=== PATIENT | female | born 1995 | race Caucasian/White ===

== ENCOUNTER 2018-09-02 13:26 | Inpatient (IN) ==
[2018-09-02] MEDS ORDERED: SODIUM CHLORIDE 0.9% 1000ML 2,000 ML IV ONE (13:57)
[2018-09-02] MEDS ORDERED: ONDANSETRON INJ 2 MG/ML 2 ML VIAL IV STA (14:15)
[2018-09-02] MEDS ORDERED: KETOROLAC TROMETHAMINE 15 MG/ML VIAL IV STA (14:15)
[2018-09-02] MEDS ORDERED: DEXAMETHASONE **PF** INJ 10 MG/ML VIAL IV ONE (14:15)
[2018-09-02] MEDS ORDERED: HYDROmorphone INJ 1 MG/ML SYRINGE IV STA ×2 (14:15→16:51)
[2018-09-02 14:21] LABS: Basophils # (auto) 0.02 K/uL (0-0.2); Basophils % (auto) 0.4 %; Hematocrit (blood only) 36.7 % (37-47); Hemoglobin 11.9 g/dL (12.0-16.0); Immature Granulocytes # (auto) 0.01 K/uL (0.00-0.02); Immature Granulocytes % (auto) 0.2 %; Lymphocytes # (auto) 1.45 K/uL (1.2-3.4); Lymphocytes % (auto) 25.4 %; Mean Corpuscular Hgb Conc 32.4 g/dL (32-36); Mean Corpuscular Volume 87.8 fL (80-100); Mean Platelet Volume 10.1 fL (7.4-10.4); Monocytes # (auto) 0.58 K/uL (0.11-0.59); Monocytes % (auto) 10.2 %; Neutrophils # (auto) 3.64 K/uL (1.4-6.5); Neutrophils % (auto) 63.8 %; Platelet Count 143 K/uL (130-400); RDW Coefficient of Variation 12.2 % (11.5-14.5); RDW Standard Deviation 39.2 fL (36.4-46.3); Red Blood Count 4.18 M/uL (4.2-5.4)
[2018-09-02 14:40] LABS: Albumin Level 3.6 gm/dl (3.4-5.0); BUN Creatinine Ratio 13.5 (10-20); Calcium 9.1 mg/dl (8.5-10.1); Creatinine Clr Calc Pharmacy 108.2 ml/min; Est GFR (African American) 116.8; Est GFR (Non-African American) 100.8
[2018-09-02 14:43] LABS: Albumin Globulin Ratio 0.9 (0.9-2); Bilirubin,Total 0.4 mg/dl (0.2-1); Globulin 3.9 gm/dl (2.5-4.0); Total Protein 7.5 gm/dl (6.4-8.2)
[2018-09-02] MEDS ORDERED: POTASSIUM CHLORIDE 20 MEQ/15 ML UDC PO STA (15:17)
[2018-09-02] MEDS ORDERED: POTASSIUM CHLORIDE / WTR 10 MEQ/100 ML PLCT IV ONE (15:17)
--- NOTE | 2018-09-02 15:17 | Emergency Department Note ---
Entered by Bebe Baltazar acting as a scribe for ED Provider Note CHIEF COMPLAINT: Sore throat and weakness HISTORY OF PRESENT ILLNESS: The patient is a 22 year old female who presents to the Emergency Room with complaints of worsening sore throat and weakness that started last night. The patient was seen in the ER yesterday for sore throat secondary to suppurative tonsillitis from mononucleosis. The patient�s friend notes the patient is unable to speak. The patient reports she took OxyIR at 1 but did not help. She reports she was hot and shaky all night and could not sleep. The patient notes she woke up this morning and it was difficult to breath. She states she has intermittent nausea and feels dizzy. The patient states her body is achy all over. Pt denies LOC, headache, fevers, chills, diaphoresis, visual changes, neck pain , chest pain, vomiting, abdominal pain, back pain, melena, hematochezia, urinary symptoms, numbness, lymphadenopathy, rash, or other complaints. REVIEW OF SYSTEMS: See HPI for pertinent positives and negatives. A total of ten systems were reviewed and were otherwise negative. PMHx/PSHx: Acute suppurative tonsillitis Mononucleosis Elevated LFTs SOCIAL HISTORY: Patient lives at home. PHYSICAL EXAM: GENERAL: Awake, alert, uncomfortable-appearing, in no distress HENT: Normocephalic, atraumatic. Moderate anterior adenopathy. Throat exam showed bilateral tonsillar hypertrophy and exudate. Slightly worse on the right side. There is posterior edema. EYES: Normal conjunctiva. Sclera non-icteric. NECK: Inspection normal. Tender on the left side. Supple. No nuchal rigidity. FROM. No masses. RESPIRATORY: Clear to auscultation. No wheezes. No rales. Normal respiratory effort. CARDIAC: Tachycardic rate. Normal rhythm. No murmurs. No rubs. Extremities warm and well perfused. Pulses equal. No JVD. GI: Soft, non-distended. No tenderness to palpation. No rebound or guarding. No masses. RECTAL: Deferred. MUSCULOSKELETAL: Atraumatic. Chest examination reveals no tenderness. The back is symmetrical on inspection without obvious abnormality. There is no CVA tenderness to palpation. No joint edema. LOWER EXTREMITIES: Calves are equal size bilaterally and non-tender. No edema. No discoloration. NEURO: Normal sensorium. No sensory or motor deficits noted. SKIN: No rash or jaundice noted. EMERGENCY DEPARTMENT COURSE: 1413: Past medical records reviewed. The patient was evaluated in room B7, and a complete history and physical examination were performed. 1648: I checked on the patient. The patient is still having pain. 1834: I put out a call for ENT. 1840: I reviewed the patient's case with Dr. Castañeda ENT. He recommended IV antibiotics. He prefers not to intervene on that. 1848: I reevaluated the patient and updated her on test results. I discussed the treatment plan with her and her family. The patient verbally agreed and understood. 1858: I reviewed the patient's case with Dr. Bateman, [facility] Hospitalist. He will evaluate the patient for further management. MEDICAL DECISION MAKING: Prior records/ancillary studies reviewed. Triage Nursing notes reviewed and agree them. The patient's history was concerning for continued fever, chills and sore throat. Differential diagnosis: Etiologies such as dehydration, mononucleosis, streptococcal pharyngitis, peritonsillar abscess, viral syndrome, retropharyngeal abscess, tonsillitis, otitis, pneumonia, influenza, as well as others were entertained. ER treatment provided: IV lock Cardiac monitoring IV normal saline 2 L bolus IV Toradol IV Decadron IV Dilaudid IV Zofran On reassessment the patient felt better. IV potassium 10 mEq Oral potassium 20 mEq On reassessment patient is doing somewhat better. IV clindamycin 900 mg Diagnostics interpreted by me: The labs revealed a mild anemia on CBC. Chemistry panel revealed hypokalemia with a potassium of 3.0. Her LFTs were elevated but improved. Imaging studies: CT scan of the neck soft tissues with IV contrast was performed. The patient has significant inflammatory change to both tonsils. There is a peritonsillar abscess measuring 1.7 cm. Epiglottis normal. I discussed further management in the hospital. Patient is in agreement. Family updated as well as they were at the bedside. Consultation: A consultation was placed with ENT and the case was discussed. IV antibiotics recommended. Surgical intervention was deferred at this time. Consultation was made with the [facility]ist service. The patient was evaluated in the ER and admitted for further treatment. IMPRESSION: Acute suppurative tonsillitis Peritonsillar abscess Hypokalemia Fever PLAN: Admit The scribe's documentation has been prepared under my direction and personally reviewed by me in its entirety. I confirm that the note above accurately reflects all work, treatment, procedures, and medical decision making performed by me. Impression & Plan Acute suppurative tonsillitis, Peritonsillar abscess, Hypokalemia, Fever Past Med/Surg History Medical History Acute suppurative tonsillitis (Acute) Mononucleosis (Acute) Elevated LFTs (Acute) Family History Other No known problems Social History Feels Safe at Home: Yes Smoking Status: Never smoker Results & Data Vital Signs Vital Signs - 24 hr 09/02/18 13:32 09/02/18 14:30 09/02/18 15:00 Temperature 38.3 C H Temperature Source Oral Sepsis Recent Fever Within 48 Hours No Sepsis New/Unexplained Change in Mental Status No Sepsis Action Taken by Nursing No Action Required Pulse Rate 90 97 H 103 H Pulse Rate from SpO2 Sensor 98 H 104 H Pulse Rhythm Regular Respiratory Rate 18 18 21 Respiratory Depth Normal Blood Pressure 135/84 124/82 129/86 Blood Pressure Mean 101 96 100 Pulse Oximetry 98 99 98 Oxygen Delivery Method Room Air Room Air Room Air 09/02/18 16:00 09/02/18 16:30 09/02/18 17:00 Temperature Temperature Source Sepsis Recent Fever Within 48 Hours Sepsis New/Unexplained Change in Mental Status Sepsis Action Taken by Nursing Pulse Rate 115 H 108 H 103 H Pulse Rate from SpO2 Sensor 114 H 108 H 103 H Pulse Rhythm Respiratory Rate 16 17 17 Respiratory Depth Blood Pressure 135/83 118/77 121/77 Blood Pressure Mean 100 90 91 Pulse Oximetry 97 95 96 Oxygen Delivery Method Room Air 09/02/18 17:26 09/02/18 18:01 09/02/18 18:30 Temperature 37.7 C H Temperature Source Oral Sepsis Recent Fever Within 48 Hours Sepsis New/Unexplained Change in Mental Status Sepsis Action Taken by Nursing Pulse Rate 92 H 89 Pulse Rate from SpO2 Sensor 95 H 89 Pulse Rhythm Respiratory Rate 15 18 Respiratory Depth Blood Pressure 119/78 111/79 Blood Pressure Mean 91 89 Pulse Oximetry 97 95 Oxygen Delivery Method 09/02/18 19:00 09/02/18 19:30 09/02/18 19:36 Temperature Temperature Source Sepsis Recent Fever Within 48 Hours Sepsis New/Unexplained Change in Mental Status Sepsis Action Taken by Nursing Pulse Rate 90 90 90 Pulse Rate from SpO2 Sensor 90 90 Pulse Rhythm Respiratory Rate 18 14 14 Respiratory Depth Blood Pressure 122/85 123/90 123/90 Blood Pressure Mean 97 101 Pulse Oximetry 97 98 98 Oxygen Delivery Method Room Air Room Air Home Medications Current Medication List: was personally reviewed by me Laboratory Data Attestation: I reviewed the patient's lab results. Result diagrams: 09/02/18 14:10 09/02/18 14:10 Lab Results 09/02/18 09/02/18 Range/Units 14:10 14:10 WBC 5.70 (4.8-10.8) K/uL RBC 4.18 L (4.2-5.4) M/uL Hgb 11.9 L (12.0-16.0) g/dL Hct 36.7 L (37-47) % MCV 87.8 (80-100) fL MCH 28.5 (25-34) pg MCHC 32.4 (32-36) g/dL RDW Std Deviation 39.2 (36.4-46.3) fL RDW Coeff of Tasha 12.2 (11.5-14.5) % Plt Count 143 (130-400) K/uL MPV 10.1 (7.4-10.4) fL Immature Gran % (Auto) 0.2 % Neut % (Auto) 63.8 % Lymph % (Auto) 25.4 % [place] % (Auto) 10.2 % Eos % (Auto) 0.0 % Baso % (Auto) 0.4 % Immature Gran # (Auto) 0.01 (0.00-0.02) K/uL Neut # (Auto) 3.64 (1.4-6.5) K/uL Lymph # (Auto) 1.45 (1.2-3.4) K/uL [place] # (Auto) 0.58 (0.11-0.59) K/uL Eos # (Auto) 0.00 (0-0.5) K/uL Baso # (Auto) 0.02 (0-0.2) K/uL Sodium 138 (136-145) mmol/L Potassium 3.0 L (3.5-5.1) mmol/L Chloride 100 (98-107) mmol/L Carbon Dioxide 29 (21-32) mmol/L Anion Gap 8.0 (3-11) BUN 11 (7-18) mg/dl Creatinine 0.83 (0.6-1.2) mg/dl Est Cr Clr Drug Dosing 108.2 ml/min Est GFR ( Amer) 116.8 Est GFR (Non-Af Amer) 100.8 BUN/Creatinine Ratio 13.5 (10-20) Glucose 99 (70-99) mg/dl Calcium 9.1 (8.5-10.1) mg/dl Total Bilirubin 0.4 (0.2-1) mg/dl AST 129 H (15-37) U/L ALT 277 H (12-78) U/L Alkaline Phosphatase 111 (45-117) U/L Total Protein 7.5 (6.4-8.2) gm/dl Albumin 3.6 (3.4-5.0) gm/dl Globulin 3.9 (2.5-4.0) gm/dl Albumin/Globulin Ratio 0.9 (0.9-2) Administered Medications Discontinued Medications Acetaminophen (Children's Acetaminophen) 960 mg PO NOW STA Stop: 09/02/18 16:43 Last Admin: 09/02/18 17:19 Dose: 960 mg Dexamethasone Sodium Phosphate (Decadron Pf) 10 mg IV NOW ONE Stop: 09/02/18 14:16 Last Admin: 09/02/18 14:26 Dose: 10 mg Hydromorphone HCl (Dilaudid) 1 mg IV NOW STA Stop: 09/02/18 14:16 Last Admin: 09/02/18 14:27 Dose: 1 mg Hydromorphone HCl (Dilaudid) 1 mg IV NOW STA Stop: 09/02/18 16:52 Last Admin: 09/02/18 17:19 Dose: 1 mg Sodium Chloride (Nss 1000ml) 2,000 mls @ 999 mls/hr IV .Q2H1M ONE Stop: 09/02/18 15:57 Last Infusion: 09/02/18 15:49 Dose: 0 mls/hr Admin: 09/02/18 14:17 Dose: 999 mls/hr Potassium Chloride (K Bowen / Wtr) 10 meq in 100 mls @ 100 mls/hr IV ONE ONE Stop: 09/02/18 16:16 Last Infusion: 09/02/18 17:18 Dose: 0 mls/hr Admin: 09/02/18 15:48 Dose: 100 mls/hr Clindamycin Phosphate 900 mg/ (Dextrose) 106 mls @ 100 mls/hr IV ONE ONE Stop: 09/02/18 19:38 Last Admin: 09/02/18 19:05 Dose: 100 mls/hr Ioversol (Optiray 320 100ml) 95 ml IV ONCE PRN PRN Reason: Interaction Checking Stop: 09/06/18 17:54 Last Admin: 09/02/18 17:55 Dose: 95 ml Ketorolac Tromethamine (Toradol) 15 mg IV NOW STA Stop: 09/02/18 14:16 Last Admin: 09/02/18 14:26 Dose: 15 mg Ondansetron HCl (Zofran) 4 mg IV NOW STA Stop: 09/02/18 14:16 Last Admin: 09/02/18 14:26 Dose: 4 mg Potassium Chloride (Tessy Ciel Elix) 20 meq PO NOW STA Stop: 09/02/18 15:18 Last Admin: 09/02/18 15:48 Dose: 20 meq Blood Pressure Blood Pressure Findings: Normal blood pressure Blood Pressure Disposition: did not require urgent referral Discharge Plan Visit Data Chief Complaint: Weakness Stated Complaint: MONO SWOLLEN TONSILS SOB WEAK ED Provider: Lucio Sanchez Discharge Problem: Acute suppurative tonsillitis, Peritonsillar abscess, Hypokalemia, Fever Patient Disposition: Being Evaluated by Hospitalist Discharge Instructions Interventions: ED Discharge Assessment Last Done: 09/02/18 19:36 The scribe's documentation has been prepared under my direction and personally reviewed by me in its entirety. I confirm that the note above accurately reflects all work, treatment, procedures, and medical decision making performed by me.
[2018-09-02] MEDS ORDERED: ACETAMINOPHEN SUSP 160 MG/5 ML UDC PO STA (16:42)
[2018-09-02] MEDS ORDERED: IOVERSOL 100ml IV PRN (17:55)
--- NOTE | 2018-09-02 18:07 | CT Scan Report ---
CT soft tissue neck w con CLINICAL HISTORY: 22 years-old Female presenting with severe sore throat, inability to swallow. TECHNIQUE: Multidetector CT of the neck was performed after the administration of intravenous contras t. IV contrast: 95 mL of Optiray 320. One or more dose lowering techniques were used consistent with the principles of ALARA (as low as reasonably achievable), including automatic exposure control, mA o r kV adjustment to individual patient size, and/or use of iterative reconstruction. COMPARISON: None. CT DOSE (mGy.cm): The estimated cumulative dose is 471.37 mGy.cm. FINDINGS: Material Control Analyst topogram: Unremarkable. Polypoid mucosal thickening in the left maxillary sinus. Significant hyperemia and swelling of the bi lateral palatine tonsils. A focal round 1.6 cm collection is noted in the left tonsil consistent with abscess. Effacement of the oropharynx. Swelling of the uvula. No effacement of the valleculae or pir iform sinuses. Severe effacement of the nasopharynx with mucosal hyperemia (series 3 image 1:15). Sig nificant thickening of nasopharyngeal mucosa. No retropharyngeal fluid or inflammatory change is appa rent. Numerous small bilateral cervical lymph nodes, likely reactive. Patent vasculature. Parotid, lino bmandibular, and thyroid glands normal. Orbits normal. Limited intracranial evaluation within normal limits. 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 IMPRESSION: Severe tonsillitis with a 1.6 cm left peritonsillar abscess. Significant narrowing of the oropharynx and effacement of the nasopharynx due to exuberant mucosal thickening and inflammatory change. No ret ropharyngeal abscess or retropharyngeal inflammatory change. Electronically signed by: Cam Jennings M.D. 09/02/2018 6:06 PM
[2018-09-02] MEDS ORDERED: CLINDAMYCIN 900 MG in DEXTROSE 5% 100 ML IV ONE (18:35)
[2018-09-02] MEDS ORDERED: OXYCODONE HCL IR 5 MG TAB (IMMEDIATE RELEASE) PO PRN (19:42)
[2018-09-02] MEDS ORDERED: ONDANSETRON INJ 2 MG/ML 2 ML VIAL IV PRN (19:42)
--- NOTE | 2018-09-02 22:32 | History & Physical Report ---
Date of Service September 02, 2018 Assessment & Plan (1) Peritonsillar abscess: will treat with Clindamycin 900mg IV q8 no role for drainage per ENT due to high risk of bleeding take control with Oxycodone can use Toradol IV PRN or Morphine for breakthrough consult Dr. Castañeda to see here in hospital, would be helpful for her to have follow up with him in office (2) Hypokalemia: replace with 20mEq of K in maintenance fluids repeat tomorrow (3) Mononucleosis: supportive care with fluids, pain control patient with fatigue, mildly elevated LFT, mild splenomegaly discussed no contact sports for 3-6 months (4) Elevated LFTs: due to [place] repeat tomorrow (5) Splenomegaly: due to mono see above (6) Dehydration: NSS + 20mEq of K at 100cc/hr History of Present Illness Chief Complaint: My throat hurts really bad Primary Care Provider: [facility], [place] 22 yo female with week long history of severe sore throat. She was diagnosed with infectious mononucleosis earlier in the week. She has been experiencing profound fatigue and the worst sore throat she has ever experienced. It is difficult to swallow. She can drink fluids but she is having a difficult time eating foods. No difficulty breathing. She was seen two days ago for these symptoms in the ED, her potassium was low and she was given aggressive hydration and potassium supplementation and sent home with Oxycodone to take for pain. She returns today because her sore throat is worse and she still is having a difficult time swallowing, eating and drinking. Her potassium was low at 3.0. CT neck shows a peritonsillar abscess. ED discussed with Dr. Castañeda, he said that peritonsillar abscess is difficult to drain with concurrent mono because they tend to bleed a lot. He recommended IV antibiotics. The patient has no medical history. 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 In addition to the fatigue and sore throat she admits to some vague but constant abdominal pain, most pronounced in LUQ consistent with a swollen spleen. No smoking, no daily drinking. She does not have any significant family history in this situation. Allergies Allergy/AdvReac Type Severity Reaction Status Date / Time No Known Allergies Allergy Unverified 09/02/18 13:49 Home Medications Home Medications Medication Instructions Recorded Confirmed Type oxycodone 5 mg PO DAILY PRN 09/02/18 09/02/18 History Past Med/Surg History Medical History Acute suppurative tonsillitis (Acute) Mononucleosis (Acute) Elevated LFTs (Acute) Family History Other HTN (hypertension) No known problems Social History Current Living Situation: Family Current Living Situation Comment: PATIENT IS A [employer] STUDENT Feels Safe at Home: Yes Safety Concerns: Feels Safe At This Time Smoking Status: Never smoker Hx Alcohol Use: Yes Alcohol type: beer, wine and hard liquor Alcohol Intake Frequency: holidays/special occasions only Hx Substance Use: No Beliefs That Will Affect Care: None Preferred Language: Syriac Communication Ability: Effective Mortgage Loan Processor Required: No Review of Systems All systems reviewed & are unremarkable except as noted in HPI & below Physical Exam 2 Vital Signs (Past 24 Hours): Last Vital Signs Temp 37.7 C H 09/02/18 17:26 Pulse 90 09/02/18 19:00 Resp 18 09/02/18 19:00 BP 122/85 09/02/18 19:00 Pulse Ox 97 09/02/18 19:00 Constitutional: WD/WN, vitals as above + ill appearing; + not appropriately hydrated (appears dry) Eyes: PERRL, conjunctivae normal, anicteric sclerae ENMT: Nose: no nasal discharge and no sinus tenderness Mouth: + muffled voice; no lip abnormality Throat: uvula midline and + tonsil abnormality ( swollen bilaterally, nearly touching in the midline, purulent drainage) Neck: trachea midline, no thyromegaly Respiratory: normal respiratory effort, lungs clear to auscultation Cardiovascular: RRR, no murmur, no edema Gastrointestinal (Abdomen): Inspection/Auscultation: abdomen normal to inspection and normal bowel sounds Percussion/Palpation: + abdomen tender ( LUQ), abdomen soft and + splenomegaly (spleen can be palpated, two finger widths below costal margin, tender); no guarding, no hepatomegaly and no abdominal mass Musculoskeletal: no cyanosis or clubbing, extremities motor strength 5/5 Skin: no rashes, warm and dry Neurologic: patellar DTR's 2+ bilat, sensation intact and PERRL, EOMI, accommodation nl, no face palsy, no dysarthria Psychiatric: A+Ox3, euthymic affect Lymphatic: no cervical or axillary lymphadenopathy Results & Data Laboratory Results Laboratory Results - last 24 hr 09/02/18 09/02/18 14:10 14:10 WBC 5.70 RBC 4.18 L Hgb 11.9 L Hct 36.7 L MCV 87.8 MCH 28.5 MCHC 32.4 RDW Std Deviation 39.2 RDW Coeff of Tasha 12.2 Plt Count 143 MPV 10.1 Immature Gran % (Auto) 0.2 Neut % (Auto) 63.8 Lymph % (Auto) 25.4 [place] % (Auto) 10.2 Eos % (Auto) 0.0 Baso % (Auto) 0.4 Immature Gran # (Auto) 0.01 Neut # (Auto) 3.64 Lymph # (Auto) 1.45 [place] # (Auto) 0.58 Eos # (Auto) 0.00 Baso # (Auto) 0.02 Sodium 138 Potassium 3.0 L Chloride 100 Carbon Dioxide 29 Anion Gap 8.0 BUN 11 Creatinine 0.83 Est Cr Clr Drug Dosing 108.2 Est GFR ( Amer) 116.8 Est GFR (Non-Af Amer) 100.8 BUN/Creatinine Ratio 13.5 Glucose 99 Calcium 9.1 Total Bilirubin 0.4 AST 129 H ALT 277 H Alkaline Phosphatase 111 Total Protein 7.5 Albumin 3.6 Globulin 3.9 Albumin/Globulin Ratio 0.[address] NECK AND SOFT TISSUES IMPRESSION: Severe tonsillitis with a 1.6 cm left peritonsillar abscess. Significant narrowing of the oropharynx and effacement of the nasopharynx due to exuberant mucosal thickening and inflammatory change. No retropharyngeal abscess or retropharyngeal inflammatory change. Code Status & VTE Plan Code Status full code VTE Prophylaxis Plan VTE Prophylaxis will be ordered: No _ (1) Mononucleosis Infectious mononucleosis complication: Infectious mononucleosis etiology:
[2018-09-02] MEDS: ACETAMINOPHEN 325 MG TAB PO PRN (23:36)
[2018-09-03] MEDS: CLINDAMYCIN 900 MG in DEXTROSE 5% 100 ML IV SCH ×2 (03:20→10:26)
[2018-09-03] MEDS: OXYCODONE HCL IR 5 MG TAB (IMMEDIATE RELEASE) PO PRN ×2 (03:27→13:48)
[2018-09-03 06:49] LABS: Basophils # (auto) 0.02 K/uL (0-0.2); Basophils % (auto) 0.3 %; Hematocrit (blood only) 34.8 % (37-47); Hemoglobin 11.2 g/dL (12.0-16.0); Immature Granulocytes # (auto) 0.02 K/uL (0.00-0.02); Immature Granulocytes % (auto) 0.3 %; Lymphocytes # (auto) 1.63 K/uL (1.2-3.4); Lymphocytes % (auto) 24.8 %; Mean Corpuscular Hgb Conc 32.2 g/dL (32-36); Mean Corpuscular Volume 88.3 fL (80-100); Mean Platelet Volume 9.7 fL (7.4-10.4); Monocytes # (auto) 0.99 K/uL (0.11-0.59); Monocytes % (auto) 15.1 %; Neutrophils # (auto) 3.91 K/uL (1.4-6.5); Neutrophils % (auto) 59.5 %; Platelet Count 171 K/uL (130-400); RDW Coefficient of Variation 12.2 % (11.5-14.5); RDW Standard Deviation 39.4 fL (36.4-46.3); Red Blood Count 3.94 M/uL (4.2-5.4); White Blood Count 6.57 K/uL (4.8-10.8)
[2018-09-03 07:29] LABS: Albumin Level 3.2 gm/dl (3.4-5.0); BUN Creatinine Ratio 14.3 (10-20); Bilirubin Direct 0.1 mg/dl (0-0.2); Calcium 8.3 mg/dl (8.5-10.1); Creatinine Clr Calc Pharmacy 126.4 ml/min; Est GFR (African American) 141.1; Est GFR (Non-African American) 121.8; Potassium 4.1 mmol/L (3.5-5.1)
[2018-09-03] MEDS: ACETAMINOPHEN 325 MG TAB PO PRN (07:30)
[2018-09-03 07:36] LABS: Bilirubin,Total 0.5 mg/dl (0.2-1); Total Protein 7.1 gm/dl (6.4-8.2)
--- NOTE | 2018-09-03 07:39 | Surgery Consultation ---
Date of Consultation September 03, 2018 Assessment & Plan (1) Mononucleosis: may have small abcess, better this AM after Iv clinda., please call me if she gets worse for possible I and D, thanks (2) Peritonsillar abscess: History of Present Illness Reason for Consultation: sore throat Attending Physician: Willi Bateman DO History of Present Illness 22 yo with inf. mono., splenomegaly, CT showed left peritonsillar abcess but she has no trismus or dysphagia Allergies Allergy/AdvReac Type Severity Reaction Status Date / Time No Known Allergies Allergy Unverified 09/02/18 13:49 Home Medications Home Medications Medication Instructions Recorded Confirmed Type oxycodone 5 mg PO DAILY PRN 09/02/18 09/02/18 History Patient History Medical History Acute suppurative tonsillitis (Acute) Mononucleosis (Acute) Elevated LFTs (Acute) Family History Other HTN (hypertension) No known problems Social History Current Living Situation: Family Current Living Situation Comment: PATIENT IS A [employer] STUDENT Feels Safe at Home: Yes Safety Concerns: Feels Safe At This Time Smoking Status: Never smoker Hx Alcohol Use: Yes Alcohol type: beer, wine and hard liquor Alcohol Intake Frequency: holidays/special occasions only Hx Substance Use: No Beliefs That Will Affect Care: None Preferred Language: Kiswahili Communication Ability: Effective Video Game Engineer Required: No Physical Exam 2 Vital Signs (Past 24 Hours): Last Vital Signs Temp 36.9 C 09/03/18 06:48 Pulse 76 09/03/18 06:48 Resp 18 09/03/18 06:48 BP 123/82 09/03/18 06:48 Pulse Ox 99 09/03/18 06:48 Constitutional: WD/WN, vitals as above Eyes: PERRL, conjunctivae normal, anicteric sclerae ENMT: Mouth: + oropharynx abnormality (tonsil 4+ with exudate, no trismus, no uvular shift, no drooling) Neck: bilateral mildlt tender adenopathy Respiratory: normal respiratory effort, lungs clear to auscultation Cardiovascular: RRR, no murmur, no edema Chest (Breasts): Chest: normal inspection of chest Gastrointestinal (Abdomen): Percussion/Palpation: + splenomegaly (palpable, mild tenderness) _ (1) Mononucleosis Infectious mononucleosis complication: Infectious mononucleosis etiology:
[2018-09-03] MEDS ORDERED: CLINDAMYCIN HCL 150 MG CAP PO SCH (14:00)
--- NOTE | 2018-09-03 14:37 | Medical Student Progress Note ---
Date of Service September 03, 2018 Assessment & Plan (1) Peritonsillar abscess: 1. Consulted ENT: surgery not indicated. Transition from IV clindamycin to oral if tolerated. Send home with 10 days of 300 mg clindamycin q8h Present on Admission?: No (2) Mononucleosis: 1. Discharge home with mother for rest, fluids, and pain control with acetaminophen as needed. Infectious mononucleosis complication: other complications Present on Admission?: Yes (3) Hypokalemia: 1. K level restored to 4.1 from the low level of 3.0, so able to stop potassium in fluids. Continue to hydrate well at home. Present on Admission?: Yes Supervising Attestation Patient seen and examined today with medical student. Refer to my discharge summary for full details. Subjective Overnight, Alessia had some throat pain, but she was still able to sleep well. She was able to eat some soft toast for breakfast and has been able to drink a little bit as well. Her throat still hurts this morning, and the pain medication is not helping her. Review of Systems All systems reviewed & are unremarkable except as noted in HPI & below Constitutional: + chills, + sweats, + body aches and + fatigue Ear, Nose, Mouth, Throat: + sore throat, + hoarseness, + dysphagia and + pain with swallowing Gastrointestinal: + abdominal pain Musculoskeletal: + body aches Hematologic / Lymphatic: + lymphadenopathy Physical Exam 2 Vital Signs (Past 24 Hours): Last Vital Signs Temp 36.9 C 09/03/18 13:52 Pulse 76 09/03/18 13:52 Resp 18 09/03/18 13:52 BP 123/82 09/03/18 13:52 Pulse Ox 99 09/03/18 13:52 Constitutional: WD/WN, vitals as above Eyes: PERRL, conjunctivae normal, anicteric sclerae ENMT: Throat: + tonsil abnormality tonsils are 4+ and touching with exudate Neck: trachea midline, no thyromegaly normal visual inspection Respiratory: normal respiratory effort, lungs clear to auscultation Cardiovascular: RRR, no murmur, no edema Gastrointestinal (Abdomen): Percussion/Palpation: + abdomen tender, abdomen soft and + splenomegaly 2 finger widths past costal margin Musculoskeletal: no cyanosis or clubbing, extremities motor strength 5/5 Skin: no rashes, warm and dry Psychiatric: A+Ox3, euthymic affect Lymphatic: + cervical lymphadenopathy Results & Data Laboratory Results CBC: Hbg down to 11.2 from 12.4 CMP: AST elevated at 82, ALT elevated at 232, K: 4.1 up to normal from 3.0 Diagnostic Findings Soft tissue neck CT: Severe tonsillitis with a 1.6 cm left peritonsillar abscess
--- NOTE | 2018-09-03 22:42 | Discharge Summary ---
Date of Service September 03, 2018 Admission HPI Per Admitting Provider 22 yo female with week long history of severe sore throat. She was diagnosed with infectious mononucleosis earlier in the week. She has been experiencing profound fatigue and the worst sore throat she has ever experienced. It is difficult to swallow. She can drink fluids but she is having a difficult time eating foods. No difficulty breathing. She was seen two days ago for these symptoms in the ED, her potassium was low and she was given aggressive hydration and potassium supplementation and sent home with Oxycodone to take for pain. She returns today because her sore throat is worse and she still is having a difficult time swallowing, eating and drinking. Her potassium was low at 3.0. CT neck shows a peritonsillar abscess. ED discussed with Dr. Castañeda, he said that peritonsillar abscess is difficult to drain with concurrent mono because they tend to bleed a lot. He recommended IV antibiotics. The patient has no medical history. 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 In addition to the fatigue and sore throat she admits to some vague but constant abdominal pain, most pronounced in LUQ consistent with a swollen spleen. No smoking, no daily drinking. She does not have any significant family history in this situation. Admission Exam Per Admitting Provider Constitutional: WD/WN, vitals as above + ill appearing; + not appropriately hydrated (appears dry) Eyes: PERRL, conjunctivae normal, anicteric sclerae ENMT: Nose: no nasal discharge and no sinus tenderness Mouth: + muffled voice; no lip abnormality Throat: uvula midline and + tonsil abnormality ( swollen bilaterally, nearly touching in the midline, purulent drainage) Neck: trachea midline, no thyromegaly Respiratory: normal respiratory effort, lungs clear to auscultation Cardiovascular: RRR, no murmur, no edema Gastrointestinal (Abdomen): Inspection/Auscultation: abdomen normal to inspection and normal bowel sounds Percussion/Palpation: + abdomen tender (LUQ) , abdomen soft and + splenomegaly (spleen can be palpated, two finger widths below costal margin, tender); no guarding, no hepatomegaly and no abdominal mass Musculoskeletal: no cyanosis or clubbing, extremities motor strength 5/5 Skin: no rashes, warm and dry Neurologic: patellar DTR's 2+ bilat, sensation intact and PERRL, EOMI, accommodation nl, no face palsy, no dysarthria Psychiatric: A+Ox3, euthymic affect Lymphatic: no cervical or axillary lymphadenopathy Principal Diagnosis Infectious mononucleosis Discharge Exam Constitutional WD/WN, vitals as above Eyes PERRL, conjunctivae normal, anicteric sclerae ENMT Nose: no nasal discharge and no sinus tenderness Mouth: + muffled voice; no lip abnormality Throat: uvula midline and + tonsil abnormality (tonsils enlarged, touching in midline, exudate) Neck trachea midline, no thyromegaly normal visual inspection Respiratory normal respiratory effort, lungs clear to auscultation Cardiovascular RRR, no murmur, no edema Gastrointestinal (Abdomen) Inspection/Auscultation: abdomen normal to inspection and normal bowel sounds Percussion/Palpation: + abdomen tender, abdomen soft and + splenomegaly; no guarding, no hepatomegaly and no abdominal mass Musculoskeletal no cyanosis or clubbing, extremities motor strength 5/5 Skin no rashes, warm and dry Neurologic patellar DTR's 2+ bilat, sensation intact and PERRL, EOMI, accommodation nl, no face palsy, no dysarthria Psychiatric A+Ox3, euthymic affect Lymphatic no cervical or axillary lymphadenopathy + cervical lymphadenopathy Discharge Data Allergies Allergy/AdvReac Type Severity Reaction Status Date / Time No Known Allergies Allergy Unverified 09/02/18 13:49 Consultations 09/02/18 18:53 ED Decision to Admit Stat 09/02/18 19:42 Consult Otolaryngology (Head and Neck) Routine Ordered Studies 09/02/18 16:43 CT soft tissue neck w con Stat Hospital Course (1) Peritonsillar abscess: improved pain, treated with Clindamycin 900mg IV q8 convert to Clindamycin 300mg q8 x 10 days if she does not improve she can follow up with her PCP in [place] area (2) Hypokalemia: resolved, due to poor oral intake K is 4.1 (3) Mononucleosis: causing tonsillitis, fatigue, splenomegaly will go home with family to [place] to get rest for 2 weeks (4) Elevated LFTs: trending down, minimally elevated due to mono (5) Splenomegaly: tender on exam, mildly enlarged instructions given for no contact sports for 3-6 months (6) Dehydration: resolved with IV fluids over night Total Time Total Time Spent Total Time Spent (In Minutes): 32 minutes Total Time Includes: Examination of the Patient, Discharge Planning, Medication Reconciliation and Other (discussing with patient's mother) Discharge Plan Discharge Items Patient Disposition: Home - Self-Care Reason For Visit: MONO, PERITONSILLAR ABSCESS Discharge Diagnosis: Mononucleosis, peritonsillar abscess Condition: Good Discharge Goals: Decrease discomfort and Improve disease control Activity: Per 'Additional Instructions' section Lifting: None Bathing: No limitations Exercise Comment: no contact sports for 3-6 months due to enlarged spleen Driving/Machine Use: No limitations Non-emergency contact: Primary Care Provider Call non-emergency contact if: you have any medication questions, your symptoms worsen, your pain is not controlled, your pain is concerning for you and you have a fever Diet: Regular Addtl Provider Instructions: Medications: - CLINDAMYCIN: 300MG every 8 hours, roughly, as long as it is three times a day - OXYCODONE: can use for pain if it is helping Infectious mononucleosis severe tonsillitis with exudate and now with peritonsillar abscess no role for drainage per ENT, recommend Clindamycin 300mg q8 get plenty of rest, push fluids as much as you can and try to stay well nourished for pain control, you can use Motrin 600mg every 6 hours, Tylenol 650mg every 6 hours can use the Oxycodone as needed if it helps as we discussed, spleen enlarged, tender, no contact sports for 3-6 months FOLLOW UP - symptoms should improve over next week, but mono can linger, especially the fatigue recommend follow up with your primary care doctor back home if you are not getting better in 5 days can refer to ENT at home if they feel it is necessary Prescriptions: New clindamycin HCl 150 mg Capsule 300 mg PO Q8 10 Days Qty: 60 RF: 0 Continue oxycodone 5 mg Tablet 5 mg PO DAILY PRN (Reason: Pain) RF: 0 Stand[facility]Alone [facility]School [facility] (Inpt) Discharge Orders: Discharge Order (Routine); Ordered 09/03/18 Ordered By: Willi Bateman Admission Data Admit Date/Time: 09/02/18 19:07 Attending Provider: Willi Bateman Admit Provider: Willi Bateman Primary Care Provider: [place],[facility] Other Providers: Willi Bateman ; Maribell Castañeda How Service: Medical Other Interventions: Discharge Summary Assessment (RN) Last Done: 09/03/18 13:52 DC Date/Time DO NOT enter until pt leaves facility: 09/03/18 14:24
== END 2018-09-03 14:24 | disposition home or self-care (01) | DRG 153 ==
LOC: ED 13:26 → 3N 19:07